=== PATIENT | male | born 1940 | race African-American/Black ===

== ENCOUNTER 2018-06-07 09:35 | Emergency (ER) | payer OTHER ==
[2018-06-07 09:43] VITALS: BP 153/84; PULSE 72; TEMP 97.5; BMI 38.7
--- NOTE | 2018-06-07 10:55 | PDOC ---
History of Present Illness - General History Source: Patient Exam Limitations: No Limitations - History of Present Illness Initial Comments: 06/07/18 11:34 The patient is a 77 year old male, with a significant past medical history of CHF, HLD, CAD s/p stents x4 (Taking Eliquis and 81mg Aspirin) who presents to the emergency department with right groin pain radiating to his RLQ and to his right low back since Monday after driving 12 hours by car. He states he first noticed the pain after getting up from a seated position. He reports the pain as 10/10, constant, and describes the pain as a grabbing sensation. He states he feels his right leg gives out on him with walking secondary to his pain. The patient states he ambulates with a cane at baseline. The patient denies chest pain, shortness of breath, headache and dizziness. The patient denies fever, chills, nausea, vomit, diarrhea and constipation. The patient denies dysuria, frequency, urgency and hematuria. He denies testicular pain or swelling. Allergies: NKDA Past surgical history: cardiac stents x4 Social history: Pt denies tobacco and ETOH PCP - Dr. Yue Torres <Helga Can - Last Filed: 06/07/18 13:06> <[place] - Last Filed: 06/07/18 15:33> - General Chief Complaint: Pain Stated Complaint: GROIN PAIN Time Seen by Provider: 06/07/18 10:54 Past History <Helga Can - Last Filed: 06/07/18 13:06> - Past Medical History Cardiac Disorders: Yes (4 stents) COPD: No Diabetes: Yes HTN: Yes - Surgical History Cardiac Surgery: Yes (4 Stent) - Suicide/Smoking/Psychosocial Hx Smoking History: Never smoked Have you smoked in the past 12 months: No If you are a former smoker, when did you quit?: 30 years Information on smoking cessation initiated: No Hx Alcohol Use: No Drug/Substance Use Hx: No Substance Use Type: None Hx Substance Use Treatment: No <[place] - Last Filed: 06/07/18 15:33> - Past Medical History Allergies/Adverse Reactions: Allergies Allergy/AdvReac Type Severity Reaction Status Date / Time No Known Allergies Allergy Verified 06/07/18 09:43 Home Medications: Ambulatory Orders Alfuzosin HCl [Alfuzosin HCl ER] 10 mg PO DAILY 11/18/17 Apixaban [Eliquis] 5 mg PO BID 11/18/17 Aspirin [Ecotrin] 81 mg PO DAILY 11/18/17 Atorvastatin Ca [Lipitor] 80 mg PO HS 11/18/17 Dutasteride 0.5 mg PO DAILY 11/18/17 Furosemide [Lasix] 40 mg PO DAILY 11/18/17 Metoprolol Tartrate [Lopressor -] 50 mg PO BID 11/18/17 metFORMIN HCL [Metformin ER Osmotic] 1,000 mg PO BID 11/18/17 Losartan Potassium [Cozaar -] 50 mg PO DAILY #30 tablet 11/21/17 Acetaminophen 1,000 mg PO QID PRN #30 tablet 06/07/18 Review of Systems - Review of Systems Able to Perform ROS?: Yes Comments:: 06/07/18 11:36 (+) right groin pain radiating to RLQ and right low back <Helga Can - Last Filed: 06/07/18 13:06> *Physical Exam - Vital Signs Last Vital Signs Temp Pulse Resp BP Pulse Ox 97.5 F L 72 17 153/84 97 06/07/18 09:40 06/07/18 09:40 06/07/18 09:40 06/07/18 09:40 06/07/18 09:40 - Physical Exam Comments: 06/07/18 11:35 GENERAL: Awake, alert, and fully oriented, in no acute distress HEAD: No signs of trauma EYES: PERRLA, EOMI, sclera anicteric, conjunctiva clear ENT: Auricles normal inspection, hearing grossly normal, nares patent, oropharynx clear without exudates. Moist mucosa NECK: Normal ROM, supple, no lymphadenopathy, JVD, or masses LUNGS: Breath sounds equal, clear to auscultation bilaterally. No wheezes, and no crackles HEART: Regular rate and rhythm, normal S1 and S2, no murmurs, rubs or gallops ABDOMEN: Soft, nontender, normoactive bowel sounds. No guarding, no rebound. No masses EXTREMITIES: (+) discomfort with external rotation of RLE, slight pain limited to external rotation of the right lower extremity. no edema. No clubbing or cyanosis. No cords, erythema, or tenderness NEUROLOGICAL: Cranial nerves II through XII grossly intact. Normal speech, normal gait with cane assist SKIN: Warm, Dry, normal turgor, no rashes or lesions noted. <BetiPradeep vanessaanda - Last Filed: 06/07/18 13:06> - Vital Signs Last Vital Signs Temp Pulse Resp BP Pulse Ox 97.5 F L 72 17 153/84 97 06/07/18 09:40 06/07/18 09:40 06/07/18 09:40 06/07/18 09:40 06/07/18 09:40 <[place] - Last Filed: 06/07/18 15:33> Medical Decision Making - Medical Decision Making 06/07/18 12:43 Pt presents to the ED complaining of atraumatic R hip pain after long car trip. Able to ambulate, but with some discomfort. Slightly pain limited ROM. Xray shows arthritis. Will give pain control and discharge home with referral to orthopedist. 06/07/18 14:19 <[place] - Last Filed: 06/07/18 15:33> *DC/Admit/Observation/Transfer <BetirasheedaHelga - Last Filed: 06/07/18 13:06> - Discharge Dispostion Decision to Admit order: No <[place] - Last Filed: 06/07/18 15:33> Diagnosis at time of Disposition: Right leg pain - Discharge Dispostion Disposition: HOME Condition at time of disposition: Good - Prescriptions Prescriptions: Acetaminophen 1,000 mg PO QID PRN #30 tablet PRN Reason: Pain - Referrals Referrals: Yue Torres [Primary Care Provider] - - Patient Instructions Printed Discharge Instructions: DI for Arthritis Additional Instructions: Return to the ED for fever, severe pain unable to walk, other new or worsening symptoms. Your pain was probably caused by your arthritis. We did an xray in the ED which showed arthritis. You should follow up with an orthopedist and with your primary care doctor. - Post Discharge Activity
[2018-06-07] MEDS ORDERED: ACETAMINOPHEN 325 MG TABLET (FP) PO ONE (12:15)
[2018-06-07] MEDS ORDERED: ACETAMINOPHEN 325 MG TABLET (FP) ONE (12:20)
== END 2018-06-07 15:45 | disposition home or self-care (01) ==
LOC: JER 09:35
DX: M13.851 Other specified arthritis, right hip (principal); I25.10 Atherosclerotic heart disease of native coronary artery without angina pectoris; I11.0 Hypertensive heart disease with heart failure; Z95.5 Presence of coronary angioplasty implant and graft; E11.9 Type 2 diabetes mellitus without complications; Z79.84 Long term (current) use of oral hypoglycemic drugs; Z79.01 Long term (current) use of anticoagulants; Z79.82 Long term (current) use of aspirin
CPT/HCPCS: 73523-TC-FY; 99281-25

== ENCOUNTER 2024-07-02 19:23 | Inpatient (IN) | payer OTHER ==
[2024-07-02] MEDS: ACETAMINOPHEN 1000 MG/100 ML BAG IVPB ONE ×2 (20:30→22:01)
[2024-07-02 20:38] LABS: ABSOLUTE IMMATURE GRANULOCYTES 0.08 x10^3/uL (0.0-0.031); BASOPHILS # 0.02 x10^3/uL (0.01-0.08); HEMATOCRIT 19.4 % (40.1-51.0); HEMOGLOBIN 5.8 g/dL (13.7-17.5); MCHC 29.9 g/dl (32.3-36.5); MEAN CELL VOLUME 88.6 fl (79.0-92.2); MEAN PLT VOLUME 11.6 fl (9.4-12.4); MONOCYTE # 0.91 x10^3/uL (0.30-0.82); MONOCYTE % 6.8 % (5.3-12.2); PLATELET COUNT 232 x10^3/uL (163-337); RDW 15.5 % (12.6-16.6)
[2024-07-02 20:40] LABS: VENOUS BASE EXCESS -7.1 mmol/L (-2-2); VENOUS O2 SATURATION 44.3 % (70-80); VENOUS PCO2 55.5 mmHg (38-52)
[2024-07-02 20:47] LABS: INR 1.88 (0.83-1.09); PROTHROMBIN TIME (PATIENT) 20.7 SEC (9.7-13.0)
[2024-07-02 20:50] LABS: ACTIVATED PTT 30.2 SECONDS (25.2-36.5)
[2024-07-02 20:57] LABS: POTASSIUM 4.5 mmol/L (3.5-5.1)
[2024-07-02 20:59] LABS: ALBUMIN 2.3 g/dl (3.4-5.0); BLOOD UREA NITROGEN 83.1 mg/dL (7-18); CALCIUM 8.9 mg/dL (8.5-10.1); MAGNESIUM 1.8 mg/dL (1.8-2.4)
[2024-07-02 21:02] LABS: CREATININE 2.5 mg/dL (0.55-1.3); VENOUS PH 7.187 (7.310-7.410)
[2024-07-02 21:04] LABS: BILIRUBIN,TOTAL 0.5 mg/dL (0.2-1); TOT PROT 5.6 g/dl (6.4-8.2)
[2024-07-02 21:19] LABS: LACTIC ACID 7.8 mmol/L (0.4-2.0)
[2024-07-02] MEDS ORDERED: ACETAMINOPHEN INJECTION 100 ML ONE ×2 (21:53→21:55)
[2024-07-02] MEDS ORDERED: PANTOPRAZOLE SODIUM 40 MG VIAL ONE (21:53)
[2024-07-02] MEDS: PANTOPRAZOLE SODIUM 40 MG VIAL IVPUSH ONE (22:01)
[2024-07-03] MEDS ORDERED: levETIRAcetam 500 MG/5 ML INJECTION VIAL IVPB ONE (00:17)
[2024-07-03] MEDS: levETIRAcetam 500 MG/5 ML INJECTION VIAL IVPB ONE (00:28)
[2024-07-03 01:01] LABS: CHOLESTEROL 67 mg/dL (50-200)
[2024-07-03 01:03] LABS: LDL CHOLESTEROL (ONLY SJRH) 26 mg/dL (5-100)
[2024-07-03 01:04] LABS: HDL CHOLESTEROL 31 mg/dL (40-60)
[2024-07-03 07:48] LABS: MONOCYTE % 5.3 % (5.3-12.2)
[2024-07-03 07:49] LABS: BASOPHILS # 0.03 x10^3/uL (0.01-0.08); HEMATOCRIT 19.3 % (40.1-51.0); HEMOGLOBIN 6.1 g/dL (13.7-17.5); MCHC 31.6 g/dl (32.3-36.5); MEAN CELL VOLUME 84.6 fl (79.0-92.2); MEAN PLT VOLUME 10.9 fl (9.4-12.4); MONOCYTE # 0.87 x10^3/uL (0.30-0.82); PLATELET COUNT 158 x10^3/uL (163-337); RDW 15.3 % (12.6-16.6)
[2024-07-03 08:05] LABS: POTASSIUM 4.8 mmol/L (3.5-5.1)
[2024-07-03 08:08] LABS: ALBUMIN 2.3 g/dl (3.4-5.0); BLOOD UREA NITROGEN 103.7 mg/dL (7-18)
[2024-07-03 08:12] LABS: CREATININE 2.7 mg/dL (0.55-1.3)
[2024-07-03 08:13] LABS: BILIRUBIN,TOTAL 0.8 mg/dL (0.2-1); TOT PROT 5.4 g/dl (6.4-8.2)
[2024-07-03] MEDS: levETIRAcetam 500 MG/5 ML INJECTION VIAL IVPB SCH (09:14)
[2024-07-03] MEDS: PANTOPRAZOLE SODIUM 40 MG VIAL IVPUSH SCH (09:15)
[2024-07-03] MEDS ORDERED: PANTOPRAZOLE SODIUM 40 MG VIAL IVPUSH SCH (10:00)
[2024-07-03 11:54] LABS: LACTIC ACID 3.6 mmol/L (0.4-2.0)
[2024-07-03] MEDS: PANTOPRAZOLE SODIUM 160 MG in SODIUM CHLORIDE 290 ML IVPB SCH (15:21)
[2024-07-03 16:29] LABS: ABSOLUTE IMMATURE GRANULOCYTES 0.05 x10^3/uL (0.0-0.031); BASOPHILS # 0.02 x10^3/uL (0.01-0.08); HEMATOCRIT 19.2 % (40.1-51.0); HEMOGLOBIN 6.4 g/dL (13.7-17.5); MCHC 33.3 g/dl (32.3-36.5); MEAN CELL VOLUME 82.1 fl (79.0-92.2); MEAN PLT VOLUME 10.8 fl (9.4-12.4); MONOCYTE # 0.84 x10^3/uL (0.30-0.82); MONOCYTE % 6.1 % (5.3-12.2); PLATELET COUNT 165 x10^3/uL (163-337); RDW 15.1 % (12.6-16.6)
[2024-07-03] MEDS: LACTATED RINGERS SOLUTION 1,000 ML/1,000 ML INFUS.BAG IV SCH (20:10)
[2024-07-04 08:06] LABS: MONOCYTE % 7.7 % (5.3-12.2)
[2024-07-04 08:08] LABS: ABSOLUTE IMMATURE GRANULOCYTES 0.05 x10^3/uL (0.0-0.031); BASOPHILS # 0.02 x10^3/uL (0.01-0.08); EOSINOPHIL % 0.2 % (0.8-7.0); EOSINOPHILS # 0.02 x10^3/uL (0.04-0.54); HEMATOCRIT 20.6 % (40.1-51.0); HEMOGLOBIN 6.6 g/dL (13.7-17.5); MEAN CELL VOLUME 78.9 fl (79.0-92.2); MEAN PLT VOLUME 11.1 fl (9.4-12.4); MONOCYTE # 0.85 x10^3/uL (0.30-0.82); PLATELET COUNT 160 x10^3/uL (163-337); RDW 22.1 % (12.6-16.6)
[2024-07-04 08:18] LABS: CHLORIDE 106 mmol/L (98-107); POTASSIUM 4.3 mmol/L (3.5-5.1); SODIUM 144 mmol/L (136-145)
[2024-07-04 08:21] LABS: CALCIUM 8.8 mg/dL (8.5-10.1)
[2024-07-04 08:22] LABS: ALBUMIN 2.3 g/dl (3.4-5.0); ANION GAP 9 mmol/L (4-13); CO2 28 mmol/L (21-32); GLUCOSE,RANDOM 146 mg/dL (74-106)
[2024-07-04 08:23] LABS: BLOOD UREA NITROGEN 109.8 mg/dL (7-18)
[2024-07-04 08:25] LABS: CREATININE 2.8 mg/dL (0.55-1.3); SGOT/AST 20 U/L (15-37); SGPT/ALT 10 U/L (13-61)
[2024-07-04 08:27] LABS: BILIRUBIN,TOTAL 1.1 mg/dL (0.2-1); TOT PROT 5.1 g/dl (6.4-8.2)
[2024-07-04 08:28] LABS: ALK PHOS 46 U/L (45-117)
[2024-07-04 15:10] LABS: ABSOLUTE IMMATURE GRANULOCYTES 0.06 x10^3/uL (0.0-0.031); BASOPHILS # 0.03 x10^3/uL (0.01-0.08); EOSINOPHIL % 0.5 % (0.8-7.0); EOSINOPHILS # 0.05 x10^3/uL (0.04-0.54); HEMATOCRIT 19.6 % (40.1-51.0); HEMOGLOBIN 6.5 g/dL (13.7-17.5); MCHC 33.2 g/dl (32.3-36.5); MEAN CELL VOLUME 80.3 fl (79.0-92.2); MEAN PLT VOLUME 10.2 fl (9.4-12.4); MONOCYTE # 0.83 x10^3/uL (0.30-0.82); MONOCYTE % 8.2 % (5.3-12.2); PLATELET COUNT 155 x10^3/uL (163-337); RDW 22.6 % (12.6-16.6)
[2024-07-04] MEDS: IRON SUCROSE INJECTION 200 MG in SODIUM CHLORIDE 100 ML IVPB ONE (16:41)
[2024-07-04 18:16] LABS: HEMATOCRIT 19.3 % (40.1-51.0); HEMOGLOBIN 6.3 g/dL (13.7-17.5); MCHC 32.6 g/dl (32.3-36.5); MEAN CELL VOLUME 80.1 fl (79.0-92.2); MEAN PLT VOLUME 10.3 fl (9.4-12.4); PLATELET COUNT 154 x10^3/uL (163-337); RDW 22.5 % (12.6-16.6)
[2024-07-04] MEDS: ATORVASTATIN CA 80 MG TABLET (FP) PO SCH (22:14)
[2024-07-05 07:34] LABS: ABSOLUTE IMMATURE GRANULOCYTES 0.03 x10^3/uL (0.0-0.031); BASOPHILS # 0.02 x10^3/uL (0.01-0.08); EOSINOPHIL % 1.1 % (0.8-7.0); EOSINOPHILS # 0.09 x10^3/uL (0.04-0.54); HEMATOCRIT 19.8 % (40.1-51.0); MCHC 31.8 g/dl (32.3-36.5); MEAN CELL VOLUME 82.5 fl (79.0-92.2); MONOCYTE # 0.68 x10^3/uL (0.30-0.82); MONOCYTE % 8.4 % (5.3-12.2); PLATELET COUNT 151 x10^3/uL (163-337); RDW 22.5 % (12.6-16.6)
[2024-07-05 07:53] LABS: POTASSIUM 3.9 mmol/L (3.5-5.1)
[2024-07-05 07:57] LABS: HEMOGLOBIN 6.3 g/dL (13.7-17.5)
[2024-07-05 08:02] LABS: CALCIUM 9.1 mg/dL (8.5-10.1)
[2024-07-05 08:03] LABS: ALBUMIN 2.3 g/dl (3.4-5.0); MAGNESIUM 2.3 mg/dL (1.8-2.4)
[2024-07-05 08:05] LABS: CREATININE 2.1 mg/dL (0.55-1.3)
[2024-07-05 08:06] LABS: INR 1.1 (0.83-1.09); PHOSPHOROUS 3.4 mg/dL (2.5-4.9)
[2024-07-05 08:07] LABS: BILIRUBIN,TOTAL 0.9 mg/dL (0.2-1)
[2024-07-05 08:08] LABS: TOT PROT 5.3 g/dl (6.4-8.2)
[2024-07-05] MEDS: FUROSEMIDE 40 MG/4 ML INJECTABLE VIAL IVPUSH ONE (10:38)
[2024-07-05] MEDS: IRON SUCROSE INJECTION 200 MG in SODIUM CHLORIDE 100 ML IVPB ONE (11:42)
[2024-07-05] MEDS: LACTATED RINGERS SOLUTION 1,000 ML/1,000 ML INFUS.BAG IV SCH (11:53)
[2024-07-05 16:52] LABS: BLOOD UREA NITROGEN 63.8 mg/dL (7-18)
[2024-07-06 07:40] LABS: HEMOGLOBIN 5.9 g/dL (13.7-17.5); MONOCYTE # 0.62 x10^3/uL (0.30-0.82)
[2024-07-06 07:41] LABS: ABSOLUTE IMMATURE GRANULOCYTES 0.04 x10^3/uL (0.0-0.031); BASOPHILS # 0.03 x10^3/uL (0.01-0.08); EOSINOPHIL % 2.2 % (0.8-7.0); EOSINOPHILS # 0.16 x10^3/uL (0.04-0.54); HEMATOCRIT 19.4 % (40.1-51.0); MCHC 30.4 g/dl (32.3-36.5); MEAN CELL VOLUME 84.7 fl (79.0-92.2); MEAN PLT VOLUME 10.5 fl (9.4-12.4); MONOCYTE % 8.6 % (5.3-12.2); PLATELET COUNT 154 x10^3/uL (163-337); RDW 21.8 % (12.6-16.6)
[2024-07-06 08:05] LABS: POTASSIUM 3.7 mmol/L (3.5-5.1)
[2024-07-06 08:13] LABS: ALBUMIN 2.2 g/dl (3.4-5.0); CALCIUM 8.7 mg/dL (8.5-10.1)
[2024-07-06 08:17] LABS: CREATININE 1.6 mg/dL (0.55-1.3)
[2024-07-06 08:19] LABS: BILIRUBIN,TOTAL 0.8 mg/dL (0.2-1); TOT PROT 5.3 g/dl (6.4-8.2)
[2024-07-06 08:26] LABS: BLOOD UREA NITROGEN 35.9 mg/dL (7-18)
[2024-07-06] MEDS: PANTOPRAZOLE SODIUM 40 MG VIAL IVPUSH SCH (21:35)
[2024-07-07 03:01] LABS: EPI CELLS 9 /uL (0-25.1); HYALINE CASTS 0 /uL (0-3.1); PH,URINE >= 9.0 (5.0-8.0); URINE APPEARANCE CLOUDY; URINE BACTERIA >9,000 /uL (0-1359); URINE BILIRUBIN NEGATIVE (NEGATIVE); URINE COLOR YELLOW; URINE GLUCOSE (UA) NEGATIVE (NEGATIVE); URINE KETONE NEGATIVE (NEGATIVE); URINE LEUK ESTERASE NEGATIVE (NEGATIVE); URINE NITRITE POSITIVE (NEGATIVE); URINE PROTEIN TRACE (NEGATIVE); URINE RBC 13 /uL (0-23.9); URINE WBC 18 /uL (0-25.8)
[2024-07-07 07:41] LABS: HEMATOCRIT 21.4 % (40.1-51.0); HEMOGLOBIN 6.7 g/dL (13.7-17.5); MCHC 31.3 g/dl (32.3-36.5); MEAN CELL VOLUME 84.3 fl (79.0-92.2); MEAN PLT VOLUME 10.7 fl (9.4-12.4); PLATELET COUNT 171 x10^3/uL (163-337); RDW 21.6 % (12.6-16.6)
[2024-07-07 08:41] LABS: POTASSIUM 3.9 mmol/L (3.5-5.1)
[2024-07-07 08:43] LABS: ALBUMIN 2.1 g/dl (3.4-5.0); CALCIUM 8.3 mg/dL (8.5-10.1)
[2024-07-07 08:47] LABS: CREATININE 1.5 mg/dL (0.55-1.3)
[2024-07-07 08:48] LABS: BILIRUBIN,TOTAL 0.8 mg/dL (0.2-1); TOT PROT 5.2 g/dl (6.4-8.2)
[2024-07-07 18:06] LABS: IRON SERUM 17 ug/dL (50-175); TOTAL IRON BINDING CAPACITY 196 ug/dL (250-450)
[2024-07-08] MEDS: ACETAMINOPHEN 500 MG TABLET (FP) PO ONE (04:16)
[2024-07-08] MEDS: IRON SUCROSE INJECTION 200 MG in SODIUM CHLORIDE 100 ML IVPB ONE (13:41)
[2024-07-09] MEDS: ACETAMINOPHEN 500 MG TABLET (FP) PO ONE ×2 (04:36→22:46)
[2024-07-09 07:22] LABS: ABSOLUTE IMMATURE GRANULOCYTES 0.08 x10^3/uL (0.0-0.031); BASOPHILS # 0.03 x10^3/uL (0.01-0.08); EOSINOPHIL % 3.1 % (0.8-7.0); EOSINOPHILS # 0.28 x10^3/uL (0.04-0.54); MCHC 30.4 g/dl (32.3-36.5); MEAN CELL VOLUME 84.6 fl (79.0-92.2); MEAN PLT VOLUME 10.9 fl (9.4-12.4); MONOCYTE # 0.74 x10^3/uL (0.30-0.82); MONOCYTE % 8.2 % (5.3-12.2); PLATELET COUNT 197 x10^3/uL (163-337); RDW 21.2 % (12.6-16.6); Reticulocyte % 3.22 % (0.51-1.81)
[2024-07-09 07:30] LABS: POTASSIUM 3.8 mmol/L (3.5-5.1)
[2024-07-09 07:52] LABS: CALCIUM 8.2 mg/dL (8.5-10.1)
[2024-07-09 07:53] LABS: BLOOD UREA NITROGEN 12.6 mg/dL (7-18)
[2024-07-09 07:57] LABS: CREATININE 1.3 mg/dL (0.55-1.3)
[2024-07-09] MEDS: IRON SUCROSE INJECTION 200 MG in SODIUM CHLORIDE 100 ML IVPB ONE (10:50)
[2024-07-09 15:29] LABS: ABSOLUTE IMMATURE GRANULOCYTES 0.07 x10^3/uL (0.0-0.031); BASOPHILS # 0.02 x10^3/uL (0.01-0.08); EOSINOPHIL % 2.9 % (0.8-7.0); EOSINOPHILS # 0.23 x10^3/uL (0.04-0.54); HEMATOCRIT 24.8 % (40.1-51.0); HEMOGLOBIN 7.6 g/dL (13.7-17.5); MCHC 30.6 g/dl (32.3-36.5); MEAN CELL VOLUME 84.9 fl (79.0-92.2); MONOCYTE # 0.72 x10^3/uL (0.30-0.82); MONOCYTE % 8.9 % (5.3-12.2); PLATELET COUNT 194 x10^3/uL (163-337); RDW 20.9 % (12.6-16.6)
[2024-07-09] MEDS: AMINO ACIDS/PROTEIN HYDROLYS 30 ML LIQUID.PKT PO SCH (17:24)
[2024-07-09] MEDS: MELATONIN 5 MG TABLETS PO PRN (22:53)
[2024-07-10 07:20] LABS: ABSOLUTE IMMATURE GRANULOCYTES 0.09 x10^3/uL (0.0-0.031); BASOPHILS # 0.02 x10^3/uL (0.01-0.08); EOSINOPHIL % 4.1 % (0.8-7.0); HEMATOCRIT 23.5 % (40.1-51.0); HEMOGLOBIN 7.1 g/dL (13.7-17.5); MCHC 30.2 g/dl (32.3-36.5); MEAN CELL VOLUME 85.1 fl (79.0-92.2); MEAN PLT VOLUME 10.3 fl (9.4-12.4); MONOCYTE # 0.66 x10^3/uL (0.30-0.82); PLATELET COUNT 218 x10^3/uL (163-337); RDW 20.9 % (12.6-16.6)
[2024-07-10 07:43] LABS: POTASSIUM 3.8 mmol/L (3.5-5.1)
[2024-07-10 07:56] LABS: ALBUMIN 2.1 g/dl (3.4-5.0); BLOOD UREA NITROGEN 12.8 mg/dL (7-18); CALCIUM 8.5 mg/dL (8.5-10.1)
[2024-07-10 08:00] LABS: CREATININE 1.3 mg/dL (0.55-1.3)
[2024-07-10 08:01] LABS: BILIRUBIN,TOTAL 0.5 mg/dL (0.2-1); TOT PROT 5.6 g/dl (6.4-8.2)
[2024-07-11] MEDS: ACETAMINOPHEN 500 MG TABLET (FP) PO ONE (03:16)
[2024-07-11 07:22] LABS: HEMATOCRIT 22.1 % (40.1-51.0); HEMOGLOBIN 6.9 g/dL (13.7-17.5); MCHC 31.2 g/dl (32.3-36.5); MEAN PLT VOLUME 10.3 fl (9.4-12.4); PLATELET COUNT 231 x10^3/uL (163-337); RDW 20.2 % (12.6-16.6)
[2024-07-11 07:49] LABS: POTASSIUM 3.8 mmol/L (3.5-5.1)
[2024-07-11 07:56] LABS: CALCIUM 8.2 mg/dL (8.5-10.1)
[2024-07-11 07:57] LABS: BLOOD UREA NITROGEN 13.7 mg/dL (7-18)
[2024-07-11 08:00] LABS: CREATININE 1.2 mg/dL (0.55-1.3)
[2024-07-11 08:01] LABS: BILIRUBIN,TOTAL 0.5 mg/dL (0.2-1); TOT PROT 5.5 g/dl (6.4-8.2)
[2024-07-11] MEDS ORDERED: AMMONIUM LACTATE 12% LOTION 225 GM BOTTLE TP PRN (09:24)
[2024-07-11] MEDS: FINASTERIDE 5 MG TABLET (FP) PO SCH (09:46)
[2024-07-11] MEDS: ACETAMINOPHEN 1000 MG/100 ML BAG IVPB PRN (10:21)
[2024-07-11] MEDS: IRON SUCROSE INJECTION 200 MG in SODIUM CHLORIDE 100 ML IVPB ONE (10:41)
[2024-07-12 06:35] LABS: HEMATOCRIT 24.3 % (40.1-51.0); HEMOGLOBIN 7.2 g/dL (13.7-17.5); MCHC 29.6 g/dl (32.3-36.5); MEAN CELL VOLUME 86.8 fl (79.0-92.2); MEAN PLT VOLUME 10.4 fl (9.4-12.4); PLATELET COUNT 248 x10^3/uL (163-337); RDW 20.5 % (12.6-16.6)
[2024-07-12 06:59] LABS: POTASSIUM 3.9 mmol/L (3.5-5.1)
[2024-07-12 07:06] LABS: BLOOD UREA NITROGEN 15.2 mg/dL (7-18); CALCIUM 8.5 mg/dL (8.5-10.1)
[2024-07-12 07:09] LABS: CREATININE 1.2 mg/dL (0.55-1.3)
[2024-07-12] MEDS: IRON SUCROSE INJECTION 200 MG in SODIUM CHLORIDE 100 ML IVPB ONE (10:25)
[2024-07-13] MEDS: traMADol HCL 50 MG TABLET PO PRN (01:14)
[2024-07-13 07:11] LABS: ABSOLUTE IMMATURE GRANULOCYTES 0.03 x10^3/uL (0.0-0.031); BASOPHILS # 0.02 x10^3/uL (0.01-0.08); EOSINOPHIL % 3.6 % (0.8-7.0); EOSINOPHILS # 0.25 x10^3/uL (0.04-0.54); HEMATOCRIT 25.2 % (40.1-51.0); HEMOGLOBIN 7.5 g/dL (13.7-17.5); MCHC 29.8 g/dl (32.3-36.5); MEAN CELL VOLUME 86.6 fl (79.0-92.2); MEAN PLT VOLUME 9.8 fl (9.4-12.4); MONOCYTE # 0.46 x10^3/uL (0.30-0.82); MONOCYTE % 6.7 % (5.3-12.2); PLATELET COUNT 264 x10^3/uL (163-337); RDW 20.7 % (12.6-16.6)
[2024-07-13 07:15] LABS: HEMATOCRIT 24.9 % (40.1-51.0); HEMOGLOBIN 7.4 g/dL (13.7-17.5); MCHC 29.7 g/dl (32.3-36.5); MEAN CELL VOLUME 86.8 fl (79.0-92.2); MEAN PLT VOLUME 10.2 fl (9.4-12.4); PLATELET COUNT 253 x10^3/uL (163-337); RDW 20.7 % (12.6-16.6)
[2024-07-13 07:43] LABS: POTASSIUM 3.8 mmol/L (3.5-5.1)
[2024-07-13 07:59] LABS: ALBUMIN 2.2 g/dl (3.4-5.0); BLOOD UREA NITROGEN 12.7 mg/dL (7-18); CALCIUM 8.5 mg/dL (8.5-10.1)
[2024-07-13 08:02] LABS: CREATININE 1.2 mg/dL (0.55-1.3)
[2024-07-13 08:04] LABS: BILIRUBIN,TOTAL 0.4 mg/dL (0.2-1); TOT PROT 5.7 g/dl (6.4-8.2)
[2024-07-13 09:39] VITALS: BMI 34.9
[2024-07-13] MEDS: MULTIVITAMINS (DAILY MVI) TABLET (FP) PO SCH (10:12)
[2024-07-14 12:20] LABS: ABSOLUTE IMMATURE GRANULOCYTES 0.03 x10^3/uL (0.0-0.031); BASOPHILS # 0.02 x10^3/uL (0.01-0.08); EOSINOPHIL % 3.2 % (0.8-7.0); EOSINOPHILS # 0.21 x10^3/uL (0.04-0.54); HEMOGLOBIN 7.5 g/dL (13.7-17.5); MEAN CELL VOLUME 86.8 fl (79.0-92.2); MEAN PLT VOLUME 9.3 fl (9.4-12.4); MONOCYTE # 0.41 x10^3/uL (0.30-0.82); MONOCYTE % 6.2 % (5.3-12.2); PLATELET COUNT 240 x10^3/uL (163-337); RDW 20.9 % (12.6-16.6)
[2024-07-14 15:48] VITALS: BP 113/68; PULSE 80; RESP 18; TEMP 98.1
== END 2024-07-14 17:54 | DRG 377 ==
LOC: JER 19:23 → JERBED 21:53 → J4W 07-03 01:41
PROVIDERS: ADMIT Internal Medicine; ATTEND Internal Medicine
PROC: 30233N1 Transfusion of Nonautologous Red Blood Cells into Peripheral Vein, Percutaneous Approach (ICD-10-PCS; principal; 2024-07-02)
DX: K92.2 Gastrointestinal hemorrhage, unspecified (principal); I63.9 Cerebral infarction, unspecified; E87.20 Acidosis, unspecified; N17.9 Acute kidney failure, unspecified; J44.9 Chronic obstructive pulmonary disease, unspecified; E11.9 Type 2 diabetes mellitus without complications; M10.9 Gout, unspecified; K21.9 Gastro-esophageal reflux disease without esophagitis; I25.10 Atherosclerotic heart disease of native coronary artery without angina pectoris; I48.91 Unspecified atrial fibrillation; I11.0 Hypertensive heart disease with heart failure; I50.9 Heart failure, unspecified; G40.909 Epilepsy, unspecified, not intractable, without status epilepticus
CPT/HCPCS: 0241U-QW; 36415; 36430; 70450-TC; 70496-TC; 70498-TC; 70551-TC; 71045-TC-FY; 74240-TC-FY; 76775-TC; 76856-TC; 80048; 80053; 80061; 81003; 82272; 82308; 82550; 82728; 82803; 82962; 83010; 83036; 83540; 83550; 83605; 83615; 83735; 84100; 84484; 85025; 85027; 85610; 85730; 86880; 86922; 87040; 87086; 87186; 93005; 93010; 93880-TC; 97116-GP; 97162-GP; 99285-25; J0131; J1756; P9058